=== PATIENT | male | born 2000 | race Hispanic/Latino ===

== ENCOUNTER 2023-01-30 09:57 | Emergency (ER) | payer OTHER ==
[2023-01-30] MEDS ORDERED: Silver Sulfadiazine 50 GM TUBE ONE (10:57)
[2023-01-30] MEDS ORDERED: Boostrix 0.5 ML (Tdap) VIAL (>/=7 yrs of age) ONE (11:01)
== END 2023-01-30 11:20 | disposition home or self-care (01) ==
LOC: MADERS 09:57
DX: T25.222A Burn of second degree of left foot, initial encounter (principal); T31.0 Burns involving less than 10% of body surface; F17.220 Nicotine dependence, chewing tobacco, uncomplicated; X08.8XXA Exposure to other specified smoke, fire and flames, initial encounter
CPT/HCPCS: 90471; 90715

== ENCOUNTER 2023-02-02 15:49 | Emergency (ER) | payer SELFPAY ==
[2023-02-02] MEDS ORDERED: Ibuprofen 800 MG TAB ONE (16:19)
== END 2023-02-02 16:22 | disposition home or self-care (01) ==
LOC: MADERS 15:49
DX: M25.562 Pain in left knee (principal); T25.222D Burn of second degree of left foot, subsequent encounter; F17.220 Nicotine dependence, chewing tobacco, uncomplicated
CPT/HCPCS: 99283